=== PATIENT | male | born 1965 | race Two or more races ===

== ENCOUNTER 2023-11-08 16:54 | Emergency (ER) | payer MEDICAID, OTHER ==
[~2023-11-08] VITALS: Ht 162.6 cm; Wt 96.1 kg
[2023-11-08 17:39] VITALS: BP 151/93; PULSE 80; RESP 16; TEMP 97.8; O2SAT 98
[2023-11-08] MEDS: FLUORESCEIN SOD OPTH TEST STRIP OP ONE (17:39)
[2023-11-08] MEDS: TETRACAINE HCL 0.5% OPTH(EYE) SOLN 4ML RIGHTEYE ONE (17:39)
[2023-11-08] MEDS ORDERED: CIPR0.3S67 OP (17:45)
== END 2023-11-08 17:58 | disposition home or self-care (01) ==
LOC: ER 16:54
DX: S05.01XA Injury of conjunctiva and corneal abrasion without foreign body, right eye, initial encounter (principal); H10.31 Unspecified acute conjunctivitis, right eye; W22.8XXA Striking against or struck by other objects, initial encounter; Y93.89 Activity, other specified; Y92.89 Other specified places as the place of occurrence of the external cause; Y99.8 Other external cause status